=== PATIENT | female | born 1950 | race Asian ===

== ENCOUNTER 2019-01-13 08:24 | Day surgery (SDC) | payer OTHER ==
[~2019-01-13] VITALS: Ht 165.1 cm; Wt 565.6 kg
== END 2019-01-13 10:40 | disposition home or self-care (01) ==
LOC: OR 08:24
DX: M47.817 Spondylosis without myelopathy or radiculopathy, lumbosacral region (principal); Z53.8 Procedure and treatment not carried out for other reasons
CPT/HCPCS: J2765; J7060

== ENCOUNTER 2019-01-20 08:46 | Day surgery (SDC) | payer OTHER ==
[~2019-01-20] VITALS: Ht 30.5 cm; Wt 0.5 kg
== END 2019-01-20 10:05 | disposition home or self-care (01) ==
LOC: OR 08:46
PROC: 3E0T3BZ Introduction of Anesthetic Agent into Peripheral Nerves and Plexi, Percutaneous Approach (ICD-10-PCS; principal; 2019-01-20)
PROC: 3E0T33Z Introduction of Anti-inflammatory into Peripheral Nerves and Plexi, Percutaneous Approach (ICD-10-PCS; 2019-01-20)
PROC: BR16YZZ Fluoroscopy of Lumbar Facet Joint(s) using Other Contrast (ICD-10-PCS; 2019-01-20)
DX: M47.817 Spondylosis without myelopathy or radiculopathy, lumbosacral region (principal)
CPT/HCPCS: J1100; J2001

== ENCOUNTER 2019-08-11 09:27 | Day surgery (SDC) | payer OTHER | END 2019-08-11 12:55 | disposition home or self-care (01) | LOC: OR 09:27 | PROC: 3E0T3TZ Introduction of Destructive Agent into Peripheral Nerves and Plexi, Percutaneous Approach (ICD-10-PCS; principal; 2019-08-11) | PROC: BR16YZZ Fluoroscopy of Lumbar Facet Joint(s) using Other Contrast (ICD-10-PCS; 2019-08-11) | DX: M47.817 Spondylosis without myelopathy or radiculopathy, lumbosacral region (principal) | CPT/HCPCS: 93005; 93306; J2001 ==

== ENCOUNTER 2020-01-19 07:35 | Day surgery (SDC) | payer OTHER | END 2020-01-19 11:45 | disposition home or self-care (01) | LOC: OR 07:35 | PROC: 3E0T3TZ Introduction of Destructive Agent into Peripheral Nerves and Plexi, Percutaneous Approach (ICD-10-PCS; principal; 2020-01-19) | PROC: BR16YZZ Fluoroscopy of Lumbar Facet Joint(s) using Other Contrast (ICD-10-PCS; 2020-01-19) | DX: M47.817 Spondylosis without myelopathy or radiculopathy, lumbosacral region (principal) | CPT/HCPCS: J2001 ==